=== PATIENT | female | born 1990 | race African-American/Black ===

== ENCOUNTER → 2018-10-29 | Outpatient (CLI) | payer OTHER ==
--- NOTE | 2018-10-29 15:48 | RAD ---
EXAM: Obstetrics sonogram. HISTORY: anatomy survey. TECHNIQUE: Sonographic imaging of a gravid uterus was performed. COMPARISON: None. FINDINGS: There is a single intrauterine fetus in breech presentation with a heart rate of 143 bpm. There is a three-vessel umbilical cord with normal insertion. The stomach, kidneys, bladder, spine, brain, facial profile and extremities are unremarkable. There is a four-chamber heart. There is a grade 1 posterior placenta without evidence of placenta previa. The amniotic fluid index is normal. The cervix is closed and measures 4.8 cm in length. The biparietal diameter is 4.30 cm, corresponding with 19 weeks and 0 days. Head circumference is 17.13 cm, corresponding with 19 weeks and 5 days. The abdominal circumference is 14.09 cm, corresponding with 19 weeks and 3 days. The femoral length is 3.28 cm, corresponding with 20 weeks and 2 days. The estimated gestational age patient combined ultrasound measurements is 19 weeks and 4 days and the estimated weight is 313 g. The estimated due date is 03/21/2019. IMPRESSION: 1. Single intrauterine fetus with an estimated gestational age based on ultrasound measurements of 19 weeks and 4 days and heart rate of 143 bpm. 2. Unremarkable anatomy survey. Electronically signed by: Lucia Mustafa MD (10/29/2018 3:45 PM) [place] [id number]
== END | disposition home or self-care (01) ==
LOC: US 15:17
PROVIDERS: ATTEND Family Medicine
DX: O32.1XX0 Maternal care for breech presentation, not applicable or unspecified (principal); Z3A.19 19 weeks gestation of pregnancy
CPT/HCPCS: 76805

== ENCOUNTER 2019-01-28 13:17 | Observation (INO) | payer OTHER ==
[2019-01-28] MEDS ORDERED: IV RINGERS,LACTATED 1000ML 1,000 ML IV PRN (13:30)
[2019-01-28 14:28] LABS: AMNIO PT POSITIVE
[2019-01-28 14:40] LABS: BILIRUBIN,URINE NEGATIVE (NEG); CLARITY,URINE CLEAR; COLOR,URINE YELLOW; NITRITE,URINE NEGATIVE (NEG); PROTEIN,URINE NEGATIVE (NEG-TRACE); UROBILINOGEN,URINE 0.2 mg/dL (0.2 mg/dL)
[2019-01-28 14:46] LABS: BARBITURATES NEG (NEG); BENZODIAZEPINES NEG (NEG); CANNABINOIDS POS (NEG); COCAINE NEG (NEG); METHADONE NEG (NEG); OPIATES NEG (NEG); PHENCYCLIDINE NEG (NEG)
[2019-01-28 14:48] LABS: AMPHETAMINE/METHAMPHETAMINE NEG (NEG)
[2019-01-28 14:56] LABS: BACTERIA,URINE 0 /HPF (0-FEW); RBC,URINE 0 /HPF (0-2); SQUAMOUS EPITHELIAL CELL,UR OCC /LPF
[2019-01-28] MEDS ORDERED: BETAMET ACET&NA PHOS 30 MG/5 ML VIAL. IM ONE (16:00)
[2019-01-28] MEDS ORDERED: AZITHROMYCIN 250 MG in IV NORMAL SALINE 250ML 250 ML IV ONE (16:00)
[2019-01-28] MEDS ORDERED: AMPICILLIN SODIUM 2 GM in IV NORMAL SALINE 100ML 100 ML IV ONE (16:00)
[2019-01-28] MEDS ORDERED: CALCIUM CARBONATE 500 MG TAB.CHEW PO PRN ×2 (16:45)
--- NOTE | 2019-01-28 17:01 | RAD ---
Examination: BIOPHYS PROFILE W/O NON STRESS History: Premature rupture of membranes Comparison/Correlation: None Findings: Single living intrauterine gestation with cephalic lie has a heart rate of 139 bpm. Biophysical profile score is 8 out of 8. Adequate movement identified. Posteriorly located placenta is noted. measurements include: Biparietal diameter: 7.29 cm corresponding to 29 weeks 2 days. Femur length of 6.38 cm corresponding to 33 weeks 0 days. Head circumference of 26.97 cm corresponding to 29 weeks 3 days. Abdominal circumference of 29.63 cm corresponding to 33 weeks 4 days. Estimated weight is 1999 g +/- is 296 g and this is at the 39th percentile. Age by 4 parameters corresponds to 31 weeks 2 days. EDC by average age is 98 2019. Gestational age by last menstrual period is 33 weeks 0 days. Cephalic index of 77.8. H/A ratio is 0.91. FL/BPD is 87.5. FL/ AC is 21.5. Amniotic fluid index is 15.3. IMPRESSION: Biophysical profile score of 8 out of 8. Normal cephalic lie. Ultrasound age is nearly 2 weeks less than age by last menstrual period. Correlate clinically. Electronically signed by: Cecil Garcia MD (01/28/2019 4:58 PM) [facility]
--- NOTE | 2019-01-28 17:35 | PDOC1 ---
OB - History Hx of Present Care: Good Care Ultrasounds: Normal mid trimester US Abnormal Ultrasound Findings: Current ultrasound findings show that head is measuring smaller than body Obstetrical Complications: Other (DM2) Medical Complications: None Other Concerns: Trichomonas early in Past Family/Social History * Past Medical, Surgical, Family and Obstetric Histories reviewed from chart. Blood Type: B+ Rubella: Immune RPR/VDRL: Negative GBS Status: Unknown HBsAG: Negative OB - Chief Complaint & HPI Date of Admission: Date of Admission: Jan 28, 2019 at 13:17 Chief Complaint/History : 1 Para: 0 EDC: Mar 18, 2019 EGA: 33w 0d Reason for admission: rupture of membranes Admission Nurse Assessment Rev: No OB - Admission Exam Physical Exam HEENT: Normal, Nasal Mucosa Normal, Oropharynx Normal, Moist Membranes, Fontanelles Normal Heart: Regular Rate Lungs: Clear, Equal Abdomen: Gravid Extremities: Normal Pulses, No tenderness or swelling Reflexes: Normal Cervical Dilatation: None Effacement: 0% Station: -3 Membranes: Ruptured Amniotic Fluid: Clear Heart Rate: Normal Accelerations: Accelerations Present Decelerations: No decelerations Short Term Variability: Present Software Product [employer] Variability: Moderate Contractions on Admission: 6-10 Minutes Apart Date/Time Contractions Began;: 01/27/19 Frequency of Contractions: 1800 Intensity: Mild A/P Pt is a 28yo at 33.0wga admitted for PROM 1)PROM- pt currently closed with AMIRA 15.3cm. Pt has received 1st dose of betamethasone, azithromycin and ampicillin. Transferring to [facility] 2)DM2- BS moderately controlled. Pt not always compliant with medication. Supposed to be taking Metformin 1000mg BID 3)Trichomonas beginning of - repeat cultures ordered yesterday ANUP SORENSEN MD Jan 28, 2019 17:35
--- NOTE | 2019-01-28 17:38 | PDOC3 ---
OB DISCHARGE SUMMARY DATE OF ADMISSION: 01/28/19 DATE OF DISCHARGE: 01/28/19 REASON FOR ADMISSION: PPROM PROCEDURES: Mgmt of OB Complications DISCHARGE DIAGNOSIS: Others (PPROM) DISCHARGE INFORMATION: Activity (Bed rest), Diet (ADA), Medications (Metformin 1000mg BID), Discharge to ([facility]) HOSPITAL COURSE Pt is a 28yo at 33.0wga admitted for PROM 1)PROM- pt currently closed with AMIRA 15.3cm. Pt has received 1st dose of betamethasone, azithromycin and ampicillin. Transferring to [facility] 2)DM2- BS moderately controlled. Pt not always compliant with medication. Supposed to be taking Metformin 1000mg BID 3)Trichomonas beginning of - repeat cultures ordered yesterday ANUP SORENSEN MD Jan 28, 2019 17:38
== END 2019-01-28 19:40 | disposition short-term general hospital (02) ==
LOC: 3 SO LND 13:17
PROVIDERS: ADMIT Family Medicine; ATTEND Family Medicine
DX: O42.913 Preterm premature rupture of membranes, unspecified as to length of time between rupture and onset of labor, third trimester (principal); O26.893 Other specified pregnancy related conditions, third trimester; A59.9 Trichomoniasis, unspecified; Z79.84 Long term (current) use of oral hypoglycemic drugs; Z3A.33 33 weeks gestation of pregnancy
CPT/HCPCS: 36415; 76819; 80307; 81001; 84112; 87653; 96365; 96367; 96372; G0378; G0379; J0290; J0456; J0702; J7050; J7120; J7030